=== PATIENT | female | born 1955 | race Hispanic/Latino ===

== ENCOUNTER 2020-06-29 06:15 | Observation (INO) | payer MEDICARE ==
[2020-06-25 14:19] LABS: BASOPHILS % 0.2 % (0.0-1.0); EOSINOPHILS # (AUTO) 0.1 (0.0-0.4); EOSINOPHILS % 2.8 % (0.0-6.0); HEMATOCRIT 41.6 % (34.2-44.1); HEMOGLOBIN 13.4 g/dL (12.0-16.0); LYMPHOCYTES # (AUTO) 1.1 (1.0-3.2); LYMPHOCYTES % 23.4 % (18.0-39.1); MEAN CORPUSCULAR HEMOGLOBIN 29.5 pg (28-32); MEAN CORPUSCULAR HGB CONC 32.2 g/dL (31-35); MEAN CORPUSCULAR VOLUME 91.6 fL (81-99); MONOCYTES # (AUTO) 0.3 (0.2-0.8); MONOCYTES % 6.6 % (4.4-11.3); NEUTROPHILS # (AUTO) 3.1 (2.1-6.9); NEUTROPHILS % 66.6 % (38.7-80.0); PLATELET COUNT 279 x10e3/uL (140-360); RED BLOOD COUNT 4.54 x10e6/uL (3.6-5.1); RED CELL DISTRIBUTION WIDTH 14.1 % (11.7-14.4)
[2020-06-25 14:33] LABS: ANION GAP 15.7 mmol/L (8-16); BLOOD UREA NITROGEN 22 mg/dL (7-26); BUN/CREATININE RATIO 24 (6-25); CARBON DIOXIDE 28 mmol/L (22-29); CHLORIDE 103 mmol/L (98-107); CREATININE, SERUM 0.92 mg/dL (0.57-1.11); EST GLOMERULAR FILTRATION RATE > 60 ML/MIN (60-); GLUCOSE 167 mg/dL (74-118); POTASSIUM 4.7 mmol/L (3.5-5.1); SODIUM 142 mmol/L (136-145)
[2020-06-29] VITALS (7 sets, daily range): BP systolic 86–105; BP diastolic 52–79
[~2020-06-29] VITALS: Ht 160 cm; Wt 80.7 kg
[~2020-06-29 06:15] MED LIST: AMIODARONE HCL200 MG PO; ASPIRIN81 MG PO; ATENOLOL50 MG PO; METFORMIN HCL500 MG PO; OMEPRAZOLE40 MG PO; PAROXETINE HCL20 MG PO; WARFARIN SODIUM2 MG PO; ZESTRIL2.5 MG PO
[2020-06-29] MEDS ORDERED: SODIUM CHLORIDE 0.9% 500ML 500 ML ONE (06:38)
[2020-06-29] MEDS ORDERED: TRANEXAMIC ACID 1,000 MG/10 ML ML ONE (06:38)
[2020-06-29] MEDS ORDERED: VANCOMYCIN HCL 1,000 MG ONE (06:38)
[2020-06-29] MEDS ORDERED: ROPIVACAINE 246.25 MG, EPINEPHRINE HCL 1:1000 1ML 0.5 MG, CLONIDINE HCL 0.08 MG, KETORO... INJ ONE ×5 (07:00)
[2020-06-29] MEDS ORDERED: CELECOXIB 200 MG CAP ONE (07:17)
[2020-06-29] MEDS ORDERED: DEXAMETHASONE SOD PHOS 10 MG/1 ML VIAL ONE (07:18)
[2020-06-29] MEDS ORDERED: CEFAZOLIN SOD 1 GM/NS 50ML 100 ML IV ONE (07:18)
[2020-06-29] MEDS ORDERED: GABAPENTIN 300 MG CAP ONE (07:18)
[2020-06-29 07:51] LABS: INR 0.87; PROTHROMBIN TIME 12.3 seconds (11.9-14.5)
[2020-06-29] MEDS ORDERED: ONDANSETRON HCL INJ 2MG/ML 2ML 2 MG/ML VIAL IV PRN (09:45)
[2020-06-29] MEDS ORDERED: DIPHENHYDRAMINE HCL INJ 50 MG/ML VIAL IV PRN (09:45)
[2020-06-29] MEDS ORDERED: SODIUM CHLORIDE 0.9% 1000ML 1,000 ML IV SCH (09:45)
[2020-06-29] MEDS ORDERED: ACETAMINOPHEN 650 MG SUPP PR PRN (09:45)
[2020-06-29] MEDS ORDERED: KETOROLAC TROMETHAMINE 30 MG/ML VIAL IV PRN (09:45)
[2020-06-29] MEDS ORDERED: DOCUSATE SODIUM 100 MG CAP PO PRN (09:45)
[2020-06-29] MEDS ORDERED: HYDROCODONE/APAP 7.5MG-325MG 1 EA TAB PO PRN (09:45)
[2020-06-29] MEDS ORDERED: HYDROCODONE/APAP 5MG-325MG TAB PO PRN (09:45)
[2020-06-29] MEDS ORDERED: ONDANSETRON HCL INJ 2MG/ML 2ML 2 MG/ML VIAL ONE (13:25)
[2020-06-29] MEDS ORDERED: LIDOCAINE HCL 2% LOCAL INJ 5 ML SDV VIAL INJ ONE (13:25)
[2020-06-29] MEDS ORDERED: PROPOFOL IV EMULSION 10 MG/ML 20 ML VIAL ONE (13:25)
[2020-06-29] MEDS ORDERED: SEVOFLURANE INHAL SOLN 250 ML PEN BTL ONE (13:25)
[2020-06-29] MEDS: CEFAZOLIN SOD 1 GM/NS 50ML 50 ML IV SCH ×2 (14:37→22:15)
[2020-06-29] MEDS ORDERED: PANTOPRAZOLE SOD 40 MG TABEC PO PRN (16:00)
[2020-06-29] MEDS ORDERED: CELECOXIB 100 MG CAP PO SCH (17:00)
[2020-06-29] MEDS ORDERED: ASPIRIN 325 MG TAB PO SCH (17:00)
[2020-06-29] MEDS ORDERED: METFORMIN HCL 500 MG TAB PO SCH (17:00)
[2020-06-29] MEDS: METFORMIN HCL 850 MG TAB PO SCH (17:42)
[2020-06-29] MEDS: ATENOLOL 50 MG TAB PO SCH (17:42)
[2020-06-29] MEDS ORDERED: SODIUM CHLORIDE 0.9% 1000ML 1,000 ML ONE (20:40)
[2020-06-29] MEDS: SODIUM CHLORIDE 0.9% 1000ML 1,000 ML IV SCH (20:40)
[2020-06-29] MEDS ORDERED: LISINOPRIL 2.5 MG TAB PO SCH (21:00)
[2020-06-29] MEDS ORDERED: ZOLPIDEM TARTRATE 5 MG TAB PO PRN (21:00)
[2020-06-29] MEDS ORDERED: SODIUM CHLORIDE 0.9% 1000ML 250 ML IV SCH (22:45)
[2020-06-30 04:00] VITALS: BP 87/66
[2020-06-30] MEDS: SODIUM CHLORIDE 0.9% 1000ML 1,000 ML IV SCH (05:06)
[2020-06-30 05:17] LABS: BASOPHILS % 0.2 % (0.0-1.0); EOSINOPHILS % 0.1 % (0.0-6.0); HEMATOCRIT 31.5 % (34.2-44.1); LYMPHOCYTES # (AUTO) 0.8 (1.0-3.2); LYMPHOCYTES % 9.3 % (18.0-39.1); MEAN CORPUSCULAR HEMOGLOBIN 29.5 pg (28-32); MEAN CORPUSCULAR HGB CONC 31.7 g/dL (31-35); MEAN CORPUSCULAR VOLUME 92.9 fL (81-99); MONOCYTES # (AUTO) 0.7 (0.2-0.8); MONOCYTES % 7.2 % (4.4-11.3); NEUTROPHILS # (AUTO) 7.4 (2.1-6.9); NEUTROPHILS % 82.5 % (38.7-80.0); PLATELET COUNT 201 x10e3/uL (140-360); RED BLOOD COUNT 3.39 x10e6/uL (3.6-5.1); RED CELL DISTRIBUTION WIDTH 14.2 % (11.7-14.4)
[2020-06-30 05:37] LABS: ANION GAP 15.5 mmol/L (8-16); BLOOD UREA NITROGEN 22 mg/dL (7-26); BUN/CREATININE RATIO 29 (6-25); CALCIUM 9.4 mg/dL (8.4-10.2); CARBON DIOXIDE 23 mmol/L (22-29); CHLORIDE 105 mmol/L (98-107); CREATININE, SERUM 0.75 mg/dL (0.57-1.11); EST GLOMERULAR FILTRATION RATE > 60 ML/MIN (60-); GLUCOSE 119 mg/dL (74-118); POTASSIUM 4.5 mmol/L (3.5-5.1); SODIUM 139 mmol/L (136-145)
[2020-06-30] MEDS: CEFAZOLIN SOD 1 GM/NS 50ML 50 ML IV SCH (05:45)
[2020-06-30 07:54] VITALS: BP 99/73
[2020-06-30 07:55] VITALS: BP 99/73
[2020-06-30] MEDS: METFORMIN HCL 850 MG TAB PO SCH (08:12)
[2020-06-30] MEDS: ATENOLOL 50 MG TAB PO SCH (08:13)
[2020-06-30] MEDS ORDERED: PAROXETINE HCL 20 MG TAB PO SCH (09:00)
[2020-06-30] MEDS ORDERED: CELECOXIB 200 MG CAP PO SCH (09:00)
[2020-06-30] MEDS ORDERED: ASPIRIN 81 MG CHEW TAB PO SCH (09:00)
[2020-06-30] MEDS ORDERED: AMIODARONE HCL 200 MG TAB PO SCH (09:00)
[2020-06-30] MEDS ORDERED: ACETAMINOPHEN 1000 MG/100 ML IV PRN (09:45)
[2020-06-30] MEDS ORDERED: LOVENOX40 MG/0.4 SC (11:15)
[2020-06-30 11:48] VITALS: BP 120/93
[2020-06-30] MEDS ORDERED: ONDANSETRON HCL 4 MG ORAL DISINTEGRATING TAB PO PRN (12:15)
[2020-06-30] MEDS ORDERED: WARFARIN SOD 2 MG TAB PO SCH (17:00)
== END 2020-06-30 14:14 | disposition home health service (06) ==
LOC: OR 06:15 → PACU V 09:45 → MED/SURG 13:19
PROVIDERS: ADMIT Specialist; ATTEND Specialist
DX: M17.11 Unilateral primary osteoarthritis, right knee (principal); I48.20 Chronic atrial fibrillation, unspecified; E11.9 Type 2 diabetes mellitus without complications; I11.9 Hypertensive heart disease without heart failure; R00.0 Tachycardia, unspecified; Z87.442 Personal history of urinary calculi; I95.9 Hypotension, unspecified; Z01.810 Encounter for preprocedural cardiovascular examination; Z01.812 Encounter for preprocedural laboratory examination; Z01.818 Encounter for other preprocedural examination; Z20.822 Contact with and (suspected) exposure to COVID-19; Z79.82 Long term (current) use of aspirin; Z79.84 Long term (current) use of oral hypoglycemic drugs
CPT/HCPCS: 27447; 36415 ×3; 71046; 73560; 80048 ×2; 82948 ×2; 85025 ×2; 85610; 85730; 86850; 86900; 86920; 93005 ×2; 97116 ×2; 97139 ×2; 97161; 97530; C1713; C1776 ×4; G0378 ×2; J0131; J0171; J0690 ×2; J1100; J1885; J2001; J2405; J2704; J2795; J3370; J7030 ×2; J7040; U0002

== ENCOUNTER 2020-07-04 04:46 | Emergency (ER) | payer MEDICARE ==
[~2020-07-04] VITALS: Ht 157.5 cm; Wt 79.4 kg
[~2020-07-04 04:46] MED LIST changes: +LOVENOX40 MG/0.4 SC
== END 2020-07-04 05:55 | disposition home or self-care (01) ==
LOC: ER 05:12
DX: G89.18 Other acute postprocedural pain (principal); Z96.651 Presence of right artificial knee joint; E11.9 Type 2 diabetes mellitus without complications; I48.91 Unspecified atrial fibrillation; Z87.442 Personal history of urinary calculi
CPT/HCPCS: 99282

== ENCOUNTER → 2023-03-28 | Outpatient (RCR) | payer MEDICARE | LOC: OT 09:52 | PROVIDERS: ATTEND Physician Assistant | DX: M75.101 Unspecified rotator cuff tear or rupture of right shoulder, not specified as traumatic (principal) ==

== ENCOUNTER 2023-03-30 08:40 | Outpatient (RCR) | payer MEDICARE | END 2023-04-27 | LOC: OT 08:40 | PROVIDERS: ATTEND Physician Assistant | DX: M75.101 Unspecified rotator cuff tear or rupture of right shoulder, not specified as traumatic (principal) ==